=== PATIENT | male | born 1980 | race African-American/Black ===

== ENCOUNTER 2017-06-02 20:34 | Emergency (ER) | payer MEDICAID ==
[2017-06-02 20:48] VITALS: RESP 16
--- NOTE | 2017-06-02 22:41 | EDPHY ---
H & P Time Seen by Provider: 06/02/17 22:18 HPI/ROS: CHIEF COMPLAINT: Dizzy, weak HISTORY OF PRESENT ILLNESS: 36-year-old male presents to the emergency department by private vehicle feeling dizzy and weak. The patient has a history of HIV positive and restarted a medication, Atripla, 2 days ago. He states that he had similar symptoms when he initially started this medication in 2009. No reported trauma. No headache. He currently is no longer feeling dizzy. He does feel weak and very hungry. Denies chest pain or difficulty breathing. Denies visual symptoms. Denies neck pain. No reported trauma. He states when he was driving earlier this evening, about 4 hr ago, he felt like he was losing his depth perception. He feels like this sensation has resolved. REVIEW OF SYSTEMS: Constitutional: No fever, no chills. Eyes: No double or blurry vision. ENT: No sore throat. Respiratory: No cough, no shortness of breath. Cardiac: No chest pain. Gastrointestinal: No abdominal pain, vomiting or diarrhea. Genitourinary: No dysuria. Musculoskeletal: No neck or back pain. Skin: No rashes. Neurological: No headache. Past Medical/Surgical History: HIV positive, borderline diabetic Social History: From [place], works at [employer] Smoking Status: Never smoked Physical Exam: General Appearance: Alert, no distress. Eyes: Pupils equal and round. Extraocular motions are all intact. No nystagmus. ENT: Mouth: Mucous membranes moist. Respiratory: No wheezing, rhonchi, or rales, lungs are clear to auscultation. Cardiovascular: Regular rate and rhythm. Gastrointestinal: Abdomen is soft and nontender, no masses, no rebound or guarding, bowel sounds normal. Neurological: Alert and oriented x 3, cranial nerves II through XII grossly intact Skin: Warm and dry, no rashes. Musculoskeletal: Nontender to palpate along the cervical, thoracic or lumbar spine. Neck is supple. Extremities: Full range of motion and no peripheral edema. Psychiatric: Patient is oriented X 3, there is no agitation. Constitutional: Initial Vital Signs Heart Rate 80 06/02/17 20:40 Respiratory Rate 16 06/02/17 20:40 Blood Pressure 158/99 H 06/02/17 20:40 O2 Sat (%) 96 06/02/17 20:40 O2 Delivery Mode Room Air Allergies/Adverse Reactions: No Known Allergies Allergy (Unverified 06/02/17 20:49) Home Medications: Medication Instructions Recorded Atripla Tablet 06/02/17 Citalopram 06/02/17 Hydrochlorothiazide 06/02/17 SIMVASTATIN 06/02/17 Medical Decision Making ED Course/Re-evaluation: 36-year-old female presents to the emergency department feeling dizzy and weak. His dizziness has resolved. He is stating that he is hungry. He was fed. Laboratory studies were all within normal limits. Patient states that his symptoms have completely resolved. He had similar symptoms when he restarted this medication a number of years ago. He is wondering if this is side effect of the medicine. I encouraged him to have close follow-up with his infectious disease doctor and return sooner if he has any change in symptoms or feels worse. Patient is comfortable with this plan. I doubt this patient has central source of vertigo. His symptoms of dizziness had resolved even prior to coming to the emergency department. Differential Diagnosis: Dizziness including but not limited to medication reaction, peripheral and central causes of vertigo, orthostatic causes including dehydration, and blood loss. Weakness including but not limited to medication reaction, electrolyte abnormality, depression, anxiety, CVA, spinal cord abnormality, and infectious causes. - Data Points Laboratory Results: Laboratory Results 06/02/17 21:24 06/02/17 21:24 06/02/17 06/02/17 21:24 21:24 WBC 5.41 10^3/uL 10^3/uL (3.80-9.50) RBC 5.13 10^6/uL 10^6/uL (4.40-6.38) Hgb 15.6 g/dL g/dL (13.7-17.5) Hct 44.8 % % (40.0-51.0) MCV 87.3 fL fL (81.5-99.8) MCH 30.4 pg pg (27.9-34.1) MCHC 34.8 g/dL g/dL (32.4-36.7) RDW 14.1 % % (11.5-15.2) Plt Count 249 10^3/uL 10^3/uL (150-400) MPV 10.0 fL fL (8.7-11.7) Neut % (Auto) 44.1 % % (39.3-74.2) Lymph % (Auto) 42.0 % % (15.0-45.0) [place] % (Auto) 10.9 % % (4.5-13.0) Eos % (Auto) 1.3 % % (0.6-7.6) Baso % (Auto) 1.1 % % (0.3-1.7) Nucleat RBC Rel Count 0.0 % % (0.0-0.2) Absolute Neuts (auto) 2.39 10^3/uL 10^3/uL (1.70-6.50) Absolute Lymphs (auto) 2.27 10^3/uL 10^3/uL (1.00-3.00) Absolute Monos (auto) 0.59 10^3/uL 10^3/uL (0.30-0.80) Absolute Eos (auto) 0.07 10^3/uL 10^3/uL (0.03-0.40) Absolute Basos (auto) 0.06 10^3/uL 10^3/uL (0.02-0.10) Absolute Nucleated RBC 0.00 10^3/uL 10^3/uL (0-0.01) Immature Gran % 0.6 % % (0.0-1.1) Immature Gran # 0.03 10^3/uL 10^3/uL (0.00-0.10) Sodium 138 mEq/L mEq/L (135-145) Potassium 3.7 mEq/L mEq/L (3.5-5.2) Chloride 94 mEq/L L mEq/L (97-110) Carbon Dioxide 27 mEq/l mEq/l (22-31) Anion Gap 17 mEq/L H mEq/L (8-16) BUN 22 mg/dL mg/dL (7-23) Creatinine 1.3 mg/dL mg/dL (0.7-1.3) Estimated GFR > 60 Glucose 95 mg/dL mg/dL (70-100) Calcium 10.0 mg/dL mg/dL (8.5-10.4) Departure - Departure Disposition: Home, Routine, Self-Care Clinical Impression: Dizzy Condition: Good Instructions: Dizziness (ED) Additional Instructions: Follow-up with your infectious disease doctor. Continue medications as prescribed. Return to the emergency department if you developed headache, change in symptoms or if you feel worse in any way.
[2017-06-02 22:44] LABS: PLATELET COUNT 249 10^3/uL (150-400)
[2017-06-02 23:35] VITALS: BP 136/75; PULSE 82; O2SAT 97
== END 2017-06-02 23:54 | disposition home or self-care (01) ==
DX: R42 Dizziness and giddiness (principal); B20 Human immunodeficiency virus [HIV] disease

== ENCOUNTER 2017-10-18 22:59 | Emergency (ER) | payer MEDICAID ==
[2017-10-18] MEDS ORDERED: AMOXICILLIN 250 MG PREPACK#4 BTL TAKEHOME ONE (23:27)
[2017-10-18] MEDS ORDERED: LIDOCAINE HCL 4% TOPICAL SOLN 50ML TP ONE (23:29)
--- NOTE | 2017-10-18 23:32 | EDPHY ---
H & P Stated Complaint: right ear pain Time Seen by Provider: 10/18/17 23:10 HPI/ROS: HPI The patient presents with right ear pain which has been present for the last 2 days which is getting progressively worse. It is throbbing in nature and feels as if there is fluid in his ear. It is been constant tonight. He has history of similar several months ago which was treated with a steroid he believes. He has not had any fevers or chills, nausea or vomiting. He has not had any drainage from the ear. He is HIV positive on anti-retroviral medication. REVIEW OF SYSTEMS Constitutional: No fever, no chills. Eyes: No discharge. ENT: No sore throat. Cardiovascular: No chest pain, no palpitations. Respiratory: No cough, no shortness of breath. Gastrointestinal: No abdominal pain, no vomiting. Genitourinary: No hematuria. Musculoskeletal: No back pain. Skin: No rashes. Neurological: No headache. PMHx: HIV positive Soc Hx: Works at [email or web address] PHYSICAL General Appearance: Alert, no distress Eyes: Pupils equal and round no pallor or injection ENT, Mouth: Ear canal is slightly erythematous with bulging TM with she is also erythematous with loss of landmarks, there is no tragal tenderness, there is no mastoid tenderness, there is no adjacent lymphadenopathy, Mucous membranes moist Respiratory: Breathing comfortably Neurological: A&O, moves all extremities Skin: Warm and dry, no rashes Musculoskeletal: Neck is supple non tender Extremities: symmetrical, full range of motion Psychiatric: Patient is oriented X 3, there is no agitation Source: Patient Exam Limitations: No limitations - Personal History Current Tetanus/Diphtheria Vaccine: Yes Current Tetanus Diphtheria and Acellular Pertussis (TDAP): Yes - Medical/Surgical History Hx Asthma: No Hx Chronic Respiratory Disease: No Hx Diabetes: No Hx Cardiac Disease: Yes Hx Renal Disease: No Hx Cirrhosis: No Hx Alcoholism: Yes Hx HIV/AIDS: Yes Hx Splenectomy or Spleen Trauma: No Other PMH: hypertension, hiv +, depression, hyperlipidemia, etoh abuse, cerebral fistula removed, anal fistula - Social History Smoking Status: Never smoked Constitutional: Initial Vital Signs Temperature (C) 36.7 C 10/18/17 23:00 Heart Rate 89 10/18/17 23:00 Respiratory Rate 16 10/18/17 23:00 Blood Pressure 109/63 10/18/17 23:00 O2 Sat (%) 94 10/18/17 23:00 O2 Delivery Mode Room Air Allergies/Adverse Reactions: No Known Allergies Allergy (Verified 10/18/17 23:03) Home Medications: Medication Instructions Recorded Citalopram 06/02/17 Elviteg/Cob/Emtri/Tenof Alafen 06/02/17 [Genvoya Tablet] Hydrochlorothiazide 06/02/17 Amoxicillin Trihydrate [Amoxil 250 500 mg PO Q12 7 Days cap 10/18/17 mg CAP (*)] Medical Decision Making Differential Diagnosis: 36-year-old HIV-positive male on anti-retroviral medication presents with recurrent right-sided ear pain for the last 2 days. On exam, he appears to have an acute otitis media. I have also considered mastoiditis, however he does not have any mastoid tenderness. I have considered otitis externa, however there is no drainage and the canal is minimally inflamed. I will treat him with amoxicillin. This does not appear to interact with his anti- retroviral medication, which is his primary concern. I will give him lidocaine to use topically for pain. I have instructed him to follow up with his primary care doctor if he is not better in 2 days. Departure - Departure Disposition: Home, Routine, Self-Care Clinical Impression: Acute otitis media Qualifiers: Otitis media type: serous Laterality: right Recurrence: recurrent Qualified Code(s): H65.04 - Acute serous otitis media, recurrent, right ear Condition: Good Instructions: Ear Infection (ED) Additional Instructions: You should take the antibiotic as prescribed for your Ear. You can also use the ear drop I have given you, 1-2 drops every 4 hr as needed for ear pain. Please follow-up with your regular doctor if you're not better in 2-3 days. Please return to the emergency department if your worse in any way. Referrals: BEBA CASIANO [Other] - As per Instructions Prescriptions: Amoxicillin Trihydrate [Amoxil 250 mg CAP (*)] 500 mg PO Q12 7 Days cap
[2017-10-18 23:51] VITALS: BP 117/58
[2017-10-18] MEDS ORDERED: IBUPROFEN 600 MG TAB PO ONE (23:54)
== END 2017-10-19 00:22 | disposition home or self-care (01) ==
DX: H65.04 Acute serous otitis media, recurrent, right ear (principal); Z21 Asymptomatic human immunodeficiency virus [HIV] infection status; I10 Essential (primary) hypertension